=== PATIENT | female | born 1945 | race Caucasian/White ===

== ENCOUNTER 2020-02-01 17:53 | Emergency (ER) | payer MEDICARE ==
[~2020-02-01] VITALS: Ht 160 cm; Wt 86.0 kg
[~2020-02-01 17:53] MED LIST: ACYCLOVIR400 MG PO; ASPIRIN EC325 MG PO; ASPIRIN EC81 MG PO; DICLOXACILL500 MG PO; DIGITEK0.25 MG PO; DIGOXIN; FLEXERIL10 MG PO; FLUARIX QUADRIV1 IN2 IM; HYDROCO/APAP1 T10 PO; HYDROCODONE/ACE1 TAB PO; LIPITOR40 MG PO; METOPROL TAR25 MG PO; METOPROLOL TART50 MG PO; MULTI VIT PO; NEXIUM20 M1 PO; PERCOCET 5/321 COMBO PO; PRO-BIOTIC PO; TUMS500 MG PO; ULTRAM50 MG OR; VIBRAMYCIN100 M2 PO; VITAMIN B CO PO; VITAMIN C500 M5 PO
[2020-02-01 19:15] VITALS: BP 136/90
== END 2020-02-01 19:15 | disposition home or self-care (01) ==
LOC: ED 17:53
DX: I83.891 Varicose veins of right lower extremity with other complications (principal); I48.91 Unspecified atrial fibrillation

== ENCOUNTER 2020-06-14 | Emergency (ER) | payer MEDICARE ==
[~2020-06-14] VITALS: Ht 160 cm; Wt 60.0 kg
[2020-06-14 01:30] VITALS: BP 116/56
== END 2020-06-14 01:48 | disposition home or self-care (01) ==
LOC: ED
PROC: 0HQKXZZ Repair Right Lower Leg Skin, External Approach (ICD-10-PCS; principal; 2020-06-14)
DX: I83.891 Varicose veins of right lower extremity with other complications (principal); I48.91 Unspecified atrial fibrillation